=== PATIENT | female | born 1980 | race Caucasian/White ===

== ENCOUNTER 2021-11-13 14:11 | Emergency (ER) | payer MEDICAID ==
[~2021-11-13] VITALS: Ht 180.3 cm; Wt 64.0 kg
--- NOTE | 2021-11-13 14:13 | NUR ---
[id number] FRM HOME, C/O HEADACHE x 2-3 DAYS ALSO NOTED W AUDITORY HALLUCINATIONS, DENIES DRUG USE. PT VITALS WITHIN NORMAL LIMITS. NO RESP DISTRESS NOTED.
--- NOTE | 2021-11-13 14:26 | NUR ---
IV ESTABLIHSED R WRIST 20G.
[2021-11-13] MEDS ORDERED: METOCLOPRAMIDE HCL 10 MG/2 ML VIAL ONE (14:39)
[2021-11-13] MEDS ORDERED: IV NS 0.9% 1,000 ML BAG IV ONE (15:00)
[2021-11-13] MEDS ORDERED: METOCLOPRAMIDE HCL 10 MG/2 ML VIAL IV ONE (15:00)
[2021-11-13 15:32] LABS: BASOPHILS % (AUTO) 0.4 % (0.0-2.0); EOSINOPHILS % (AUTO) 2.3 % (0.0-6.0); HEMATOCRIT 33 % (33-45); HEMOGLOBIN 10.3 g/dL (11.5-14.8); LYMPHOCYTES # (AUTO) 0.7 K/uL (0.8-4.8); MEAN CORPUSCULAR HGB CONC 32 g/dl (31.0-36.0); MEAN CORPUSCULAR VOLUME 82 fL (82-100); MONOCYTES # (AUTO) 0.4 K/uL (0.1-1.30); MONOCYTES % (AUTO) 7.9 % (2.0-12.0); NEUTROPHILS % (AUTO) 76.4 % (43.0-81.0); PLATELET COUNT (AUTO) 398 K/uL (150-450); RED BLOOD CELL COUNT(AUTO) 3.99 MIL/uL (4.0-5.2); WHITE BLOOD COUNT (AUTO) 5.2 K/uL (4.3-11.0)
[2021-11-13 16:26] LABS: CALCIUM, SERUM 8.5 mg/dL (8.5-10.1); CREATININE 0.5 mg/dL (0.6-1.3)
[2021-11-13] MEDS ORDERED: POTASSIUM CHLORIDE 20 MEQ TAB.PRT.SR PO ONE ×2 (17:30→17:37)
[2021-11-13] MEDS ORDERED: IBUP-1955 PO (17:34)
--- NOTE | 2021-11-13 18:23 | NUR ---
IV removed. Catheter intact and site benign. Pressure and 4x4 applied to site. No bleeding noted.Patient discharged to home in stable condition. Written and verbal after care instructions given. Patient verbalizes understanding of instruction.
[2021-11-13 18:32] VITALS: BP 117/72
== END 2021-11-13 18:33 | disposition home or self-care (01) ==
LOC: ER 14:12
DX: R51.9 Headache, unspecified (principal); E87.6 Hypokalemia
CPT/HCPCS: 36415; 70450; 80048; 84702; 85025; 96361; 96374; 99284; J2765; J7030